=== PATIENT | female | born 1940 | race Caucasian/White ===

== ENCOUNTER 2023-12-15 10:59 | Emergency (ER) | payer MEDICARE ==
[2023-12-15] MEDS ORDERED: Naloxone 0.4 MG/ML SDV IVPUSH PRN (16:33)
[2023-12-15 16:44] LABS: BASE EXCESS VENOUS 2.9 mm/L; BICARBONATE,VENOUS 26.4 mmol/L; METHEMOGLOBIN 0.7 %; O2 SATURATION VENOUS 82.4; OXYHEMOGLOBIN 80.2 %; PCO2 VENOUS 38.7 mm/Hg; PO2 VENOUS 51.4 mm/Hg
[2023-12-15 17:11] LABS: ALANINE AMINOTRANSFERASE,ALT 21 U/L (12-78); ALKALINE PHOSPHATASE 114 U/L (46-116); ASPARTATE AMNIOTRANSFERASE,AST 26 U/L (15-37); BILIRUBIN TOTAL 0.5 mg/dL (0.2-1.0); BLOOD UREA NITROGEN,BUN 11 mg/dL (7-18); CALCIUM 8.8 mg/dL (8.5-10.1); CARBON DIOXIDE,CO2 27 mmol/L (21-32); CHLORIDE,CL 99 mmol/L (100-108); CREATININE 0.5 mg/dL (0.6-1.0); EST CRCL DRUG DOSING (CG) 62.12 mL/min; ESTIMATED GFR 94 mL/min (>60); GLUCOSE RANDOM 86 mg/dL (74-106); POTASSIUM,K 4.2 mmol/L (3.6-5.2); SODIUM,NA 135 mmol/L (140-148); TROPONIN I HIGH SENSITIVITY 12.7 pg/mL (<=60.3)
[2023-12-15 17:12] LABS: ANION GAP 13.2 mmol/L (5.0-14.0)
[2023-12-15] MEDS: Sodium Chloride 0.9% 1,000 ML IV ONE (17:13)
[2023-12-15] MEDS: HYDROmorphone 0.5 MG/0.5 ML Syringe IVPUSH ONE (17:13)
[2023-12-15 17:16] LABS: APPEARANCE,URINE CLEAR (CLEAR); BILIRUBIN,URINE NEGATIVE (NEGATIVE); COLOR,URINE YELLOW (YELLOW); GLUCOSE,URINE NEGATIVE (NEGATIVE); KETONES,URINE 40 mg/dL (NEGATIVE); LEUKOCYTE ESTERASE,URINE SMALL (NEGATIVE); NITRITE,URINE NEGATIVE (NEGATIVE); OCCULT BLOOD,URINE NEGATIVE (NEGATIVE); PH,URINE 5.5 (5.0-8.0); PROTEIN,URINE NEGATIVE (NEGATIVE); UROBILINOGEN,URINE 0.2 EU/dL (0.2-1.0)
[2023-12-15 17:21] LABS: RBC,URINE 0-5 (0-5); WBC,URINE 20-30 (0-5)
[2023-12-15 17:22] LABS: AMORPHOUS SEDIMENT,URINE NOT SEEN; BACTERIA,URINE FEW; EPITHELIAL CELLS,URINE RARE; MUCUS,URINE NOT SEEN
[2023-12-15 18:58] LABS: PLATELET COUNT,PLT 250 K/uL (130-375)
[2023-12-15 18:59] LABS: BAND ABSOLUTE MAN 0.34 K/uL; BAND PERCENT MAN 4 % (5-11); LYMPHOCYTES ABSOLUTE MAN 3.11 K/uL (0.8-3.3); LYMPHOCYTES PERCENT MAN 37 % (24-44); METAMYELOCYTE ABSOLUTE MAN 0.17 K/uL; METAMYELOCYTE PERCENT MAN 2 %; MONOCYTES ABSOLUTE MAN 0.42 K/uL (0.20-0.90); MONOCYTES PERCENT MAN 5 % (2-6); NEUTROPHILS ABSOLUTE MAN 4.37 K/uL (1.0-7.6); SEG NEUTROPHILS PERCENT MAN 52 % (36-66)
[2023-12-15 19:00] LABS: WHITE BLOOD CELL COUNT,WBC 8.4 K/uL (3.2-11.0)
== END 2023-12-15 20:02 | disposition home or self-care (01) ==
LOC: JP.ED 10:59
DX: S20.211A Contusion of right front wall of thorax, initial encounter (principal); N30.00 Acute cystitis without hematuria; W19.XXXA Unspecified fall, initial encounter
CPT/HCPCS: 36415; 70450; 71250; 74176; 80053; 81001; 82803; 83605; 83690; 84145; 84484; 85004; 85018; 85049; 87086; 93005; 93010; 96361; 96374; 99284; J1170; J7030